=== PATIENT | female | born 2000 | race Caucasian/White ===

== ENCOUNTER 2021-04-17 11:57 | Inpatient (IN) ==
[2021-04-17] MEDS ORDERED: OXYTOCIN 30 UNITS/500 ML BAG IV PRN ×2 (17:27→17:57)
[2021-04-17] MEDS ORDERED: ceFAZolin 2000MG 2,000 MG/15 ML SYR IV STA (17:27)
[2021-04-17 17:47] LABS: Hematocrit (blood only) 38.4 % (37-47); Hemoglobin 12.9 g/dL (12.0-16.0); Mean Corpuscular Hemoglobin 28.5 pg (25-34); Mean Corpuscular Hgb Conc 33.6 g/dL (32-36); Mean Platelet Volume 12.5 fL (7.4-10.4); Platelet Count 314 K/uL (130-400); RDW Coefficient of Variation 13.5 % (11.5-14.5); RDW Standard Deviation 41.5 fL (36.4-46.3); Red Blood Count 4.52 M/uL (4.2-5.4); White Blood Count 12.88 K/uL (4.8-10.8)
--- NOTE | 2021-04-17 18:14 | History & Physical Report ---
Date of Service April 17, 2021 Assessment & Plan (1) Encounter for induction of labor: Plan: 20 yo G1 at 39 weeks w/ complicated by GDM on insulin, BMI >35 at the beginning of , GBS carrier and anxiety not on medication presenting for IOL - vitals and labs reassuring - NPO, sips and chips - starting Oxytocin for IOL - anesthesia consulted GDM on insulin - bsg 85 - check bsg with goal < 130 GBS carrier w/ allergy to penicillin - starting Ancef, continue Q8H until delivery (2) GBS carrier: (3) Insulin controlled gestational diabetes mellitus (GDM) during : (4) Psychogenic nonepileptic seizure: (5) Anxiety: Admission and Anticipated Discharge Date Admission Date: April 17, 2021 History of Present Illness Chief Complaint: IOL Primary Care Provider: LUCIEN Knox Fabiana Lopez is a G1 at 39 weeks here for an induction of labor. Her is complicated by GDM on insulin, BMI > 35 at the start of , and GBS carrier status. She has a history of anxiety, and psychogenic nonepileptic seizure. She was previously on Fluoxetine and Buspirone for anxiety and stopped these during . She said her last seizure activity was in May. She is a GBS carrier. She does have an allergy to Penicillin with the reaction of rash when she was younger. She denies any contractions, leaking fluid, vaginal bleeding. Pt. states the baby has good movement. She would like to have an epidural. Allergies Allergy/AdvReac Type Severity Reaction Status Date / Time Penicillins Allergy Severe Verified 04/16/21 15:18 Home Medications Medication Instructions Recorded Confirmed Type fluoxetine 40 mg capsule 40 mg PO DAILY 08/27/20 04/16/21 History prenat.vits,lizzie,rku-[id number] 1 tab PO DAILY 08/27/20 04/16/21 History buspirone 10 mg tablet 10 mg PO DAILY 09/28/20 04/16/21 History doxylamine succinate 25 mg tablet 25 mg PO HS PRN 09/28/20 04/16/21 History (Unisom (doxylamine)) ondansetron HCl 4 mg tablet 4 mg PO Q6H PRN #12 tab 09/28/20 04/16/21 Rx (Zofran) pyridoxine (vitamin B6) 100 mg 0 mg PO HS 09/28/20 04/16/21 History tablet (Vitamin B-6) blood-glucose meter (OneTouch #1 ea 11/28/20 04/16/21 Rx Verio Flex meter) lancets 33 gauge (OneTouch Delica #150 ea 11/28/20 04/16/21 Rx Plus Lancet) OneTouch Verio test strips (blood #150 ea NS 12/03/20 04/16/21 Rx sugar diagnostic) acetone (urine) test (Ketone Urine #50 ea 12/03/20 04/16/21 Rx Test) insulin NPH isoph U-100 human 100 10 unit SUBCUT QPM #15 ml 01/01/21 04/16/21 Rx unit/mL (3 mL) subcutaneous pen (Humulin N NPH U-100 Insulin KwikPen) pen needle, diabetic 32 gauge x #100 ea 01/01/21 04/16/21 Rx 5/32" (BD Ultra-Fine Brooke Pen Needle) ondansetron HCl 4 mg tablet 4 mg PO Q6H PRN #30 tab 02/23/21 04/16/21 Rx (Zofran) Patient History Medical History Anxiety Chemical Insulin controlled gestational diabetes mellitus (GDM) during Psychogenic nonepileptic seizure Surgical History No history of previous surgery Family History Mother H/O Spinal surgery Father Heart disease Social History Smoking Status: Never smoker Hx Alcohol Use: No Hx Substance Use: No Preferred Language: Slovak [employer] Server Required: No Beliefs That Will Affect Care: None marital status: Single marital status details: davian (20) [phone] Current Living Situation: Significant Other Current Living Situation Comment: lives with FOB, no pets. 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 Review of Systems no fever, no chills and no fatigue no cough, no dyspnea and no hemoptysis no chest pain and no palpitations no dysuria, no urinary frequency and no urinary urgency no rash Physical Exam Constitutional: well developed and well nourished; no acute distress Eyes: PERRL, conjunctivae normal, anicteric sclerae ENMT: external ear and nose normal, oropharynx normal Neck: normal visual inspection Respiratory: normal respiratory effort, lungs clear to auscultation Cardiovascular: RRR, no murmur, no edema Gastrointestinal (Abdomen): normal bowel sounds, soft, nontender, no hepatosplenomegaly Musculoskeletal: no cyanosis or clubbing, extremities motor strength 5/5 Skin: no rashes, warm and dry Neurologic: no focal motor deficits Psychiatric: Orientation: alert Eye Contact: good eye contact Genitourinary: Per. Dr. Alexander's exam: 375/-2 mid soft EGW 8-9 lbs Results & Data ([facility]) Vital Signs (Past 12 Hours) Vital Signs Pulse BP 04/17/21 17:40 118 H 134/71 Results Complete Blood Count Results: RBC 4.52 M/uL (4.2-5.4) 04/17/21 WBC 12.88 K/uL (4.8-10.8) H 04/17/21 Hgb 12.9 g/dL (12.0-16.0) 04/17/21 Hct 38.4 % (37-47) 04/17/21 Plt Count 314 K/uL (130-400) 04/17/21 Results BMP Results: Sodium 136 mmol/L (136-145) 09/28/20 Potassium 3.4 mmol/L (3.5-5.1) L 09/28/20 Chloride 103 mmol/L (98-107) 09/28/20 Carbon Dioxide 26 mmol/L (21-32) 09/28/20 Anion Gap 7.0 (3-11) 09/28/20 BUN 3 mg/dl (7-18) L 09/28/20 Creatinine 0.58 mg/dl (0.6-1.2) L 09/28/20 Glucose 85 mg/dl (70-99) 09/28/20 Code Status & VTE Plan Code Status full code Supervising Physician Co-Signing Physician Notes Patient seen and evaluated and agree with the above findings and plan. Resident Activity Tracking Resident Involvement: Resident Care Provided Care Provided: OB Delivery
[2021-04-17] MEDS: LACTATED RINGER'S 1,000 ML IV PRN (18:21)
[2021-04-17] MEDS ORDERED: CALCIUM CARBONATE 500 MG CHEWABLE TAB PO PRN (19:31)
[2021-04-18] MEDS ORDERED: BUPIVACAINE 0.25% 30 ML VIAL ONE ×2 (00:13→07:09)
[2021-04-18] MEDS ORDERED: fentaNYL citrate 100 MCG/2 ML VIAL ONE ×3 (00:13→11:01)
[2021-04-18] MEDS ORDERED: SODIUM CHLORIDE 0.9% INJ 10 ML VIAL ONE ×2 (00:13→08:45)
[2021-04-18] MEDS ORDERED: ePHEDrine sulfate 50 MG/ML AMP ONE ×2 (00:13→08:45)
[2021-04-18] MEDS ORDERED: fentaNYL 2MCG/ML ROPIVACAINE 1.25MG/ML 100 ML BAG EPI ONE (00:14)
[2021-04-18] MEDS ORDERED: ceFAZolin 1000MG 1,000 MG/7.5 ML SYR IV PRN (00:28)
[2021-04-18] MEDS: LACTATED RINGER'S 1,000 ML IV PRN ×3 (00:36→07:30)
[2021-04-18] MEDS ORDERED: diphenhydrAMINE 50 MG/ML VIAL IV PRN ×3 (00:44→21:56)
[2021-04-18] MEDS ORDERED: fentaNYL 2MCG/ML ROPIVACAINE 1.25MG/ML 100 ML BAG EPI PRN (00:44)
[2021-04-18] MEDS ORDERED: NALOXONE HCL 1 MG in SODIUM CHLORIDE 0.9% 1000ML 1,000 ML IV PRN ×2 (00:44→21:56)
[2021-04-18] MEDS ORDERED: ePHEDrine sulfate 50 MG/ML AMP IV PRN ×2 (00:44→21:56)
[2021-04-18] MEDS ORDERED: NALBUPHINE HCL INJ 10 MG/ML AMP IV PRN ×2 (00:44→21:56)
[2021-04-18] MEDS ORDERED: NALOXONE HCL 0.4 MG/1 ML VIAL/CARP IV PRN ×2 (00:44→21:56)
[2021-04-18] MEDS ORDERED: ONDANSETRON INJ 2 MG/ML 2 ML VIAL IV PRN ×3 (00:44→21:56)
--- NOTE | 2021-04-18 00:47 | Anesthesiology Consultation ---
Date of Service April 18, 2021 Assessment & Plan Chart Review Chart Review: Acceptable Risk for Surgery and Patient NOT seen in Pre Admission Testing Consults Requested none ASA ASA2 Proposed Anesthesia Anesthesia Type: MAC Spinal Risk / Benefits Reviewed With: PT / POA / Parent / Guardian, Accepts Plan and Informed Consent Obtained History Height/Weight Height: 5 ft 3 in Weight: 117.934 kg Allergies Allergy/AdvReac Type Severity Reaction Status Date / Time Penicillins Allergy Severe Rash Verified 04/17/21 19:15 Medications Home Medications Medication Instructions Recorded Confirmed Last Taken prenat.vits,lizzie,vnd-holw-udhrw 1 tab PO DAILY 08/27/20 04/17/21 04/16/21 20:30 blood-glucose meter (OneTouch #1 ea 11/28/20 04/16/21 Unknown Verio Flex meter) lancets 33 gauge (OneTouch Delica #150 ea 11/28/20 04/16/21 Unknown Plus Lancet) OneTouch Verio test strips (blood #150 ea NS 12/03/20 04/16/21 Unknown sugar diagnostic) acetone (urine) test (Ketone Urine #50 ea 12/03/20 04/16/21 Unknown Test) pen needle, diabetic 32 gauge x #100 ea 01/01/21 04/16/21 Unknown 5/32" (BD Ultra-Fine Brooke Pen Needle) ondansetron HCl 4 mg tablet 4 mg PO Q6H PRN #30 tab 02/23/21 04/17/21 04/16/21 1 6:30 (Zofran) insulin NPH isoph U-100 human 100 25 unit SUBCUT QPM 04/17/21 04/17/21 04/16/21 20:30 unit/mL (3 mL) subcutaneous pen (Humulin N NPH U-100 Insulin KwikPen) Active Medications Generic Name Dose Route Start Last Admin Trade Name Freq PRN Reason Stop Dose Admin Calcium Carbonate 1,500 mg 04/17/21 19:31 04/17/21 20:08 Calcium Carbonate 500 Mg Chewable Tab PO 05/17/21 19:30 1,500 mg BID PRN Administration Indigestion Lactated Ringer's 1,000 mls @ 125 mls/hr 04/17/21 17:27 04/18/21 00:36 Lr IV 04/19/21 17:26 999 mls/hr .Q8H PRN Administration L&D Protocol Protocol Oxytocin 30 units in 500 mls @ 10 mls/hr 04/17/21 17:57 04/17/21 22:15 Pitocin IV 04/19/21 17:56 0.6 units/hr .Q24H PRN 10 mls/hr Labor Induction/Augmentation Titration Protocol 0.6 UNITS/HR NPO Date Last Intake of Fluids: 04/18/21 Time Last Intake of Fluids: 00:10 Date Last Intake of Solids: 04/17/21 Time Last Intake of Solids: 13:00 Past Medical History Medical History Anxiety Chemical Insulin controlled gestational diabetes mellitus (GDM) during Psychogenic nonepileptic seizure Exercise / Class Metabolic Activity II 4-5 Yardwork/Stairs/Walk up hill Past Family History Family History Mother H/O Spinal surgery Father Heart disease Past Surgical History Surgical History No history of previous surgery Past Anesthesia History No Hx of Anesthesia Complications and No Family Hx of Anesthesia Complications History of PONV No Hx of PONV and No Hx of Motion Sickness Social History Smoking Status: Never smoker Hx Alcohol Use: No Hx Substance Use: No substance use type: does not use Review of Systems no chest pain or sob Physical Exam Vital Signs Last Vital Signs Temp 36.9 C 04/17/21 23:30 Pulse 85 04/18/21 00:40 Resp 20 04/18/21 00:29 BP 144/73 H 04/18/21 00:29 Pulse Ox 99 04/18/21 00:40 ENMT Mouth: no TMJ abnormality Thyromental Distance: > or= 3.5 Finger Breadths Mallampati Class: II Neck normal visual inspection Respiratory normal respiratory effort Auscultation: lungs clear to auscultation bilaterally Cardiovascular Rate/Rhythm: regular rate and regular rhythm Musculoskeletal Spine: normal cervical ROM Neurologic moves all extremities Psychiatric Orientation: alert and oriented x 3 Testing Laboratory Results 04/17/21 17:37 Blood Type O Positive 04/17/21 17:37 Antibody Screen NEGATIVE 04/17/21 17:37 04/17/21 04/17/21 04/17/21 23:31 21:26 19:12 POC Glucose 78 83 96
--- NOTE | 2021-04-18 05:23 | Labor Progress Brief Note ---
Date of Service April 18, 2021 Subjective Reason For Note: Routine Evaluation Assessment & Plan (1) Encounter for induction of labor: Plan: 20 yo G1 at 39 weeks w/ complicated by GDM on insulin, BMI >35 at the beginning of , GBS carrier and anxiety not on medication presenting for IOL - vitals and labs reassuring - NPO, sips and chips - Continue Oxytocin, AROM clear - anesthesia: Epidural GDM on insulin - bsg 78-100 - check bsg with goal < 130 GBS carrier w/ allergy to penicillin - starting Ancef, continue Q8H until delivery (2) GBS carrier: (3) Insulin controlled gestational diabetes mellitus (GDM) during : (4) Psychogenic nonepileptic seizure: (5) Anxiety: Admission and Anticipated Discharge Date Admission Date: April 17, 2021 Physical Exam Genitourinary: OB Exam Abdomen: + vertex Manual OB Exam: + cervical dilation 4 cm, + cervical effacement 80%, + station -2 and + amniotic fluid (AROM) clear OB Exam Monitor Tracing: + external FHT monitor used, + external uterine monitor used, + category I and + normal FHT variability; no early decelerations present, no late decelerations present and no variable decelerations Results & Data ([facility]) Vital Signs (Past 12 Hours) Vital Signs Temp Pulse Resp BP Pulse Ox 04/18/21 05:16 126 H 138/65 04/18/21 05:15 127 H 96 04/18/21 05:10 105 H 97 04/18/21 05:05 116 H 96 04/18/21 05:00 98 H 97 04/18/21 04:59 92 H 128/67 04/18/21 04:55 88 95 04/18/21 04:52 89 93 04/18/21 04:50 88 95 04/18/21 04:47 84 94 04/18/21 04:45 86 95 04/18/21 04:42 102 H 154/67 H 04/18/21 04:40 89 94 04/18/21 04:35 90 94 04/18/21 04:34 87 94 04/18/21 04:30 83 96 04/18/21 04:29 90 94 04/18/21 04:27 88 125/59 L 04/18/21 04:25 89 95 04/18/21 04:23 92 H 94 04/18/21 04:20 88 96 04/18/21 04:16 90 94 04/18/21 04:15 89 95 04/18/21 04:12 93 H 129/59 L 04/18/21 04:10 116 H 96 04/18/21 04:08 91 H 94 04/18/21 04:05 89 95 04/18/21 04:03 90 94 04/18/21 04:00 95 H 16 95 04/18/21 03:57 93 H 138/65 94 04/18/21 03:55 89 95 04/18/21 03:50 96 H 95 04/18/21 03:45 97 H 95 04/18/21 03:43 97 H 134/61 04/18/21 03:42 100 H 94 04/18/21 03:40 96 H 96 04/18/21 03:35 104 H 96 04/18/21 03:30 117 H 97 04/18/21 03:28 121 H 90 04/18/21 03:27 120 H 132/74 04/18/21 03:25 36.9 C 130 H 16 98 04/18/21 03:20 125 H 97 04/18/21 03:15 114 H 97 04/18/21 03:12 126 H 137/72 04/18/21 03:10 137 H 98 04/18/21 03:05 149 H 97 04/18/21 03:00 107 H 99 04/18/21 02:57 108 H 135/66 04/18/21 02:55 85 96 04/18/21 02:51 95 H 93 04/18/21 02:50 108 H 97 04/18/21 02:45 103 H 97 04/18/21 02:44 99 H 134/71 04/18/21 02:40 112 H 100 04/18/21 02:35 98 H 97 04/18/21 02:30 113 H 99 04/18/21 02:29 99 H 144/69 H 04/18/21 02:25 112 H 98 04/18/21 02:20 101 H 99 04/18/21 02:15 108 H 98 04/18/21 02:12 93 H 127/61 04/18/21 02:10 96 H 97 04/18/21 02:05 97 H 95 04/18/21 02:00 108 H 16 96 04/18/21 01:57 108 H 116/56 L 04/18/21 01:55 102 H 97 04/18/21 01:50 109 H 99 04/18/21 01:45 105 H 100 04/18/21 01:43 108 H 116/61 04/18/21 01:40 105 H 99 04/18/21 01:35 107 H 97 04/18/21 01:30 115 H 16 98 04/18/21 01:26 113 H 18 119/61 04/18/21 01:25 107 H 98 04/18/21 01:21 116 H 16 127/77 04/18/21 01:20 109 H 98 04/18/21 01:15 106 H 20 123/58 L 98 04/18/21 01:14 100 H 18 124/56 L 04/18/21 01:13 117 H 93 04/18/21 01:11 117 H 18 149/83 H 04/18/21 01:10 110 H 98 04/18/21 01:08 118 H 20 138/75 04/18/21 01:05 110 H 98 04/18/21 01:00 134 H 98 04/18/21 00:55 110 H 99 04/18/21 00:52 106 H 91 04/18/21 00:50 93 H 98 04/18/21 00:45 85 99 04/18/21 00:40 85 99 04/18/21 00:35 84 100 04/18/21 00:30 86 100 04/18/21 00:29 79 20 144/73 H 04/17/21 23:30 36.9 C 83 18 147/72 H 04/17/21 22:15 88 16 142/86 H 04/17/21 21:21 98 H 20 145/74 H 04/17/21 20:08 105 H 18 136/63 04/17/21 19:08 36.9 C 107 H 18 139/87 04/17/21 17:52 36.9 C 20 04/17/21 17:40 118 H 134/71 Coding Level of Care Code None Diagnoses Encounter for induction of labor Z34.90 GBS carrier Z22.330 Insulin controlled gestational diabetes mellitus (GDM) during O24.414 Psychogenic nonepileptic seizure F44.5 Anxiety F41.9
[2021-04-18] MEDS ORDERED: NURSING L&D Epidural Breakthrough Pain Update ONE (06:59)
--- NOTE | 2021-04-18 07:32 | Communication Note ---
Date of Service: April 18, 2021 Epidural was bolused with fentanyl 50mcg and 3mL of 0.25% bupivacaine. Labor pains had improved. VSS.
--- NOTE | 2021-04-18 08:46 | Obstetrical Progress Note ---
Date of Service April 18, 2021 Signed over of call patient's heart rate tracing is category 1 a scalp clip was placed due to difficulties in tracing possibly due to body habitus. Patient is on Pitocin and being induced she is gestational diabetic on insulin. I did examine her she has progressed to 7 cm and then to 9 cm however pelvic outlet is fairly narrow I did express this concern to the patient. She is also very uncomfortable at this stage she had a top dose of her epidural recently and this did not help much I contacted the anesthesiologist to see if there is anything else we can do to improve her pain. At this stage she is so uncomfortable I do not know if she can proceed this way. I have informed her I think there certainly is a higher chance of considering the narrowness of her pelvic outlet at the same time she is making progress of possibility of vaginal delivery as there. We can make her more comfortable as discussed with anesthesia we can give her the best possible chance of vaginal Assessment & Plan Admission and Anticipated Discharge Date Admission Date: April 17, 2021 Results & Data ([facility]) Vital Signs (Past 12 Hours) Vital Signs Temp Pulse Resp BP Pulse Ox 04/18/21 08:38 140 H 98 04/18/21 08:33 136 H 98 04/18/21 08:29 146 H 145/73 H 04/18/21 08:28 133 H 100 04/18/21 08:25 135 H 87 L 04/18/21 08:23 126 H 99 04/18/21 08:20 138 H 92 04/18/21 08:18 142 H 158/69 H 98 04/18/21 08:13 140 H 98 04/18/21 08:12 142 H 158/75 H 04/18/21 08:08 134 H 173/112 H 100 04/18/21 08:03 121 H 98 04/18/21 07:58 131 H 99 04/18/21 07:53 125 H 99 04/18/21 07:48 130 H 136/69 96 04/18/21 07:43 114 H 95 04/18/21 07:39 115 H 143/70 H 04/18/21 07:25 118 H 154/69 H 04/18/21 07:23 117 H 145/66 H 04/18/21 07:22 116 H 139/73 02/19/22 07:19 114 H 154/66 H 04/18/21 07:18 123 H 154/104 H 04/18/21 07:16 114 H 139/73 04/18/21 07:13 113 H 145/63 H 93 04/18/21 07:10 126 H 97 04/18/21 07:05 148 H 100 04/18/21 07:00 136 H 20 99 04/18/21 06:57 122 H 130/81 04/18/21 06:55 122 H 94 04/18/21 06:51 120 H 91 04/18/21 06:50 118 H 97 04/18/21 06:45 118 H 96 04/18/21 06:42 134 H 132/79 04/18/21 06:40 127 H 97 04/18/21 06:35 131 H 98 04/18/21 06:33 107 H 94 04/18/21 06:30 121 H 96 04/18/21 06:27 123 H 135/61 04/18/21 06:25 128 H 98 04/18/21 06:20 123 H 95 04/18/21 06:15 112 H 95 04/18/21 06:12 120 H 144/69 H 94 04/18/21 06:10 122 H 97 04/18/21 06:05 118 H 97 04/18/21 06:00 119 H 20 96 04/18/21 05:57 122 H 138/71 92 04/18/21 05:55 128 H 97 04/18/21 05:50 146 H 96 04/18/21 05:45 109 H 95 04/18/21 05:43 99 H 138/75 04/18/21 05:40 110 H 97 04/18/21 05:35 107 H 97 04/18/21 05:30 107 H 18 96 04/18/21 05:27 106 H 145/70 H 04/18/21 05:25 100 H 96 04/18/21 05:20 116 H 97 04/18/21 05:16 126 H 138/65 04/18/21 05:15 98.4 F 127 H 96 04/18/21 05:10 105 H 97 04/18/21 05:05 116 H 96 04/18/21 05:00 98 H 16 97 04/18/21 04:59 92 H 128/67 04/18/21 04:55 88 95 04/18/21 04:52 89 93 04/18/21 04:50 88 95 04/18/21 04:47 84 94 04/18/21 04:45 86 95 04/18/21 04:42 102 H 154/67 H 04/18/21 04:40 89 94 04/18/21 04:35 90 94 04/18/21 04:34 87 94 04/18/21 04:30 83 16 96 04/18/21 04:29 90 94 04/18/21 04:27 88 125/59 L 04/18/21 04:25 89 95 04/18/21 04:23 92 H 94 04/18/21 04:20 88 96 04/18/21 04:16 90 94 04/18/21 04:15 89 95 04/18/21 04:12 93 H 129/59 L 04/18/21 04:10 116 H 96 04/18/21 04:08 91 H 94 04/18/21 04:05 89 95 04/18/21 04:03 90 94 04/18/21 04:00 95 H 16 95 04/18/21 03:57 93 H 138/65 94 04/18/21 03:55 89 95 04/18/21 03:50 96 H 95 04/18/21 03:45 97 H 95 04/18/21 03:43 97 H 134/61 04/18/21 03:42 100 H 94 04/18/21 03:40 96 H 96 04/18/21 03:35 104 H 96 04/18/21 03:30 117 H 97 04/18/21 03:28 121 H 90 04/18/21 03:27 120 H 132/74 04/18/21 03:25 98.4 F 130 H 16 98 04/18/21 03:20 125 H 97 04/18/21 03:15 114 H 97 04/18/21 03:12 126 H 137/72 04/18/21 03:10 137 H 98 04/18/21 03:05 149 H 97 04/18/21 03:00 107 H 99 04/18/21 02:57 108 H 135/66 04/18/21 02:55 85 96 04/18/21 02:51 95 H 93 04/18/21 02:50 108 H 97 04/18/21 02:45 103 H 97 04/18/21 02:44 99 H 134/71 04/18/21 02:40 112 H 100 04/18/21 02:35 98 H 97 04/18/21 02:30 113 H 99 04/18/21 02:29 99 H 144/69 H 04/18/21 02:25 112 H 98 04/18/21 02:20 101 H 99 04/18/21 02:15 108 H 98 04/18/21 02:12 93 H 127/61 04/18/21 02:10 96 H 97 04/18/21 02:05 97 H 95 04/18/21 02:00 108 H 16 96 04/18/21 01:57 108 H 116/56 L 04/18/21 01:55 102 H 97 04/18/21 01:50 109 H 99 04/18/21 01:45 105 H 100 04/18/21 01:43 108 H 116/61 04/18/21 01:40 105 H 99 04/18/21 01:35 107 H 97 04/18/21 01:30 115 H 16 98 04/18/21 01:26 113 H 18 119/61 04/18/21 01:25 107 H 98 04/18/21 01:21 116 H 16 127/77 04/18/21 01:20 109 H 98 04/18/21 01:15 106 H 20 123/58 L 98 04/18/21 01:14 100 H 18 124/56 L 04/18/21 01:13 117 H 93 04/18/21 01:11 117 H 18 149/83 H 04/18/21 01:10 110 H 98 04/18/21 01:08 118 H 20 138/75 04/18/21 01:05 110 H 98 04/18/21 01:00 134 H 98 04/18/21 00:55 110 H 99 04/18/21 00:52 106 H 91 04/18/21 00:50 93 H 98 04/18/21 00:45 85 99 04/18/21 00:40 85 99 04/18/21 00:35 84 100 04/18/21 00:30 86 100 04/18/21 00:29 79 20 144/73 H 04/17/21 23:30 98.4 F 83 18 147/72 H 04/17/21 22:15 88 16 142/86 H 04/17/21 21:21 98 H 20 145/74 H PG Care Time/CCT Total # of Minutes Spent Total Time Spent with Patient: Total time spent is greater than 50% in coordination of care (as documented) at patient's floor/unit and/or counseling patient: Coding Level of Care Code None
--- NOTE | 2021-04-18 09:57 | Labor Progress Brief Note ---
Date of Service April 18, 2021 Patient has tried to push however she cannot bring it down to the station below -1. There is an anterior lip although I am not convinced this is purely cervix it may just be soft tissue and a very narrow pubic arch that are longer deeper decelerations with pushing as well at this time category 2 tracing. Patient still is uncomfortable I had the patient pushing over the last hour she really has not made any progress I have offered her to continue pushing however I am not optimistic that she will make it at this time the patient wishes to proceed with section I think this is reasonable as I do not think this baby is going to fit through we did again discussed the option of continuing labor. Discussed the higher rate of infection especially with long labor and section. The patient was counseled to the nature of the procedure including alternatives such as labor. Risks were discussed including bleeding infection injury to bowel bladder ureter vessels and even baby. Deep Vein thrombosis, pulmonary embolus discussed. Breakdown of incision reviewed. Deep vein thrombosis pulmonary embolus hernia and failure of the incision to heal were discussed Patient verbalized understanding of this and was given ample time to ask questions Assessment & Plan Admission and Anticipated Discharge Date Admission Date: April 17, 2021 Results & Data ([facility]) Vital Signs (Past 12 Hours) Vital Signs Temp Pulse Resp BP Pulse Ox 04/18/21 09:53 134 H 67 L 04/18/21 09:52 139 H 80 L 04/18/21 09:48 132 H 97 04/18/21 09:45 126 H 150/69 H 91 04/18/21 09:43 131 H 98 04/18/21 09:42 82 167/108 H 04/18/21 09:39 139 H 90 04/18/21 09:38 149 H 92 04/18/21 09:37 98.2 F 22 04/18/21 09:34 147 H 85 L 04/18/21 09:33 149 H 98 04/18/21 09:28 150 H 97 04/18/21 09:23 158 H 97 04/18/21 09:22 150 H 93 04/18/21 09:18 155 H 98 04/18/21 09:17 147 H 93 04/18/21 09:13 148 H 100 04/18/21 09:11 142 H 166/96 H 04/18/21 09:08 140 H 96 04/18/21 09:03 149 H 98 04/18/21 09:01 134 H 173/82 H 04/18/21 08:59 130 H 192/112 H 04/18/21 08:58 140 H 99 04/18/21 08:54 133 H 163/70 H 04/18/21 08:53 145 H 152/80 H 99 04/18/21 08:52 130 H 91 04/18/21 08:49 136 H 137/98 04/18/21 08:48 139 H 98 04/18/21 08:43 142 H 99 04/18/21 08:38 140 H 98 04/18/21 08:33 136 H 98 04/18/21 08:29 146 H 145/73 H 04/18/21 08:28 133 H 100 04/18/21 08:25 135 H 87 L 04/18/21 08:23 126 H 99 04/18/21 08:20 138 H 92 04/18/21 08:18 142 H 158/69 H 98 04/18/21 08:13 140 H 98 04/18/21 08:12 142 H 158/75 H 04/18/21 08:08 134 H 173/112 H 100 04/18/21 08:03 121 H 98 04/18/21 07:58 131 H 99 04/18/21 07:53 125 H 99 04/18/21 07:48 130 H 136/69 96 04/18/21 07:43 114 H 95 04/18/21 07:39 115 H 143/70 H 04/18/21 07:25 118 H 154/69 H 04/18/21 07:23 117 H 145/66 H 04/18/21 07:22 116 H 139/73 04/18/21 07:19 114 H 154/66 H 04/18/21 07:18 123 H 154/104 H 04/18/21 07:16 114 H 139/73 04/18/21 07:13 113 H 145/63 H 93 04/18/21 07:10 126 H 97 04/18/21 07:05 148 H 100 04/18/21 07:00 136 H 20 99 04/18/21 06:57 122 H 130/81 04/18/21 06:55 122 H 94 04/18/21 06:51 120 H 91 04/18/21 06:50 118 H 97 04/18/21 06:45 118 H 96 04/18/21 06:42 134 H 132/79 04/18/21 06:40 127 H 97 04/18/21 06:35 131 H 98 04/18/21 06:33 107 H 94 04/18/21 06:30 121 H 96 04/18/21 06:27 123 H 135/61 04/18/21 06:25 128 H 98 04/18/21 06:20 123 H 95 04/18/21 06:15 112 H 95 04/18/21 06:12 120 H 144/69 H 94 04/18/21 06:10 122 H 97 04/18/21 06:05 118 H 97 04/18/21 06:00 119 H 20 96 04/18/21 05:57 122 H 138/71 92 04/18/21 05:55 128 H 97 04/18/21 05:50 146 H 96 04/18/21 05:45 109 H 95 04/18/21 05:43 99 H 138/75 04/18/21 05:40 110 H 97 04/18/21 05:35 107 H 97 04/18/21 05:30 107 H 18 96 04/18/21 05:27 106 H 145/70 H 04/18/21 05:25 100 H 96 04/18/21 05:20 116 H 97 04/18/21 05:16 126 H 138/65 04/18/21 05:15 98.4 F 127 H 96 04/18/21 05:10 105 H 97 04/18/21 05:05 116 H 96 04/18/21 05:00 98 H 16 97 04/18/21 04:59 92 H 128/67 04/18/21 04:55 88 95 04/18/21 04:52 89 93 04/18/21 04:50 88 95 04/18/21 04:47 84 94 04/18/21 04:45 86 95 04/18/21 04:42 102 H 154/67 H 04/18/21 04:40 89 94 04/18/21 04:35 90 94 04/18/21 04:34 87 94 04/18/21 04:30 83 16 96 04/18/21 04:29 90 94 04/18/21 04:27 88 125/59 L 04/18/21 04:25 89 95 04/18/21 04:23 92 H 94 04/18/21 04:20 88 96 04/18/21 04:16 90 94 04/18/21 04:15 89 95 04/18/21 04:12 93 H 129/59 L 04/18/21 04:10 116 H 96 04/18/21 04:08 91 H 94 04/18/21 04:05 89 95 04/18/21 04:03 90 94 04/18/21 04:00 95 H 16 95 04/18/21 03:57 93 H 138/65 94 04/18/21 03:55 89 95 04/18/21 03:50 96 H 95 04/18/21 03:45 97 H 95 04/18/21 03:43 97 H 134/61 04/18/21 03:42 100 H 94 04/18/21 03:40 96 H 96 04/18/21 03:35 104 H 96 04/18/21 03:30 117 H 97 04/18/21 03:28 121 H 90 04/18/21 03:27 120 H 132/74 04/18/21 03:25 98.4 F 130 H 16 98 04/18/21 03:20 125 H 97 04/18/21 03:15 114 H 97 04/18/21 03:12 126 H 137/72 04/18/21 03:10 137 H 98 04/18/21 03:05 149 H 97 04/18/21 03:00 107 H 99 04/18/21 02:57 108 H 135/66 04/18/21 02:55 85 96 04/18/21 02:51 95 H 93 04/18/21 02:50 108 H 97 04/18/21 02:45 103 H 97 04/18/21 02:44 99 H 134/71 04/18/21 02:40 112 H 100 04/18/21 02:35 98 H 97 04/18/21 02:30 113 H 99 04/18/21 02:29 99 H 144/69 H 04/18/21 02:25 112 H 98 04/18/21 02:20 101 H 99 04/18/21 02:15 108 H 98 04/18/21 02:12 93 H 127/61 04/18/21 02:10 96 H 97 04/18/21 02:05 97 H 95 04/18/21 02:00 108 H 16 96 04/18/21 01:57 108 H 116/56 L 04/18/21 01:55 102 H 97 04/18/21 01:50 109 H 99 04/18/21 01:45 105 H 100 04/18/21 01:43 108 H 116/61 04/18/21 01:40 105 H 99 04/18/21 01:35 107 H 97 04/18/21 01:30 115 H 16 98 04/18/21 01:26 113 H 18 119/61 04/18/21 01:25 107 H 98 04/18/21 01:21 116 H 16 127/77 04/18/21 01:20 109 H 98 04/18/21 01:15 106 H 20 123/58 L 98 04/18/21 01:14 100 H 18 124/56 L 04/18/21 01:13 117 H 93 04/18/21 01:11 117 H 18 149/83 H 04/18/21 01:10 110 H 98 04/18/21 01:08 118 H 20 138/75 04/18/21 01:05 110 H 98 04/18/21 01:00 134 H 98 04/18/21 00:55 110 H 99 04/18/21 00:52 106 H 91 04/18/21 00:50 93 H 98 04/18/21 00:45 85 99 04/18/21 00:40 85 99 04/18/21 00:35 84 100 04/18/21 00:30 86 100 04/18/21 00:29 79 20 144/73 H 04/17/21 23:30 98.4 F 83 18 147/72 H 04/17/21 22:15 88 16 142/86 H Coding Level of Care Code None
[2021-04-18] MEDS ORDERED: CITRIC ACID/SODIUM CITRATE 15 ML UDC PO SCH (10:00)
[2021-04-18] MEDS ORDERED: LACTATED RINGER'S 1,000 ML IV SCH ×2 (10:00→11:45)
[2021-04-18] MEDS ORDERED: OXYTOCIN 10 UNITS/ML 10ML VIAL ONE (10:03)
[2021-04-18] MEDS ORDERED: LIDOCAINE 2%/EPINEPHRINE 1:200,000 20 ML SDV ONE (10:04)
--- NOTE | 2021-04-18 10:19 | Anesthesiology Consultation ---
Date of Service April 18, 2021 Assessment & Plan (1) Encounter for pre-operative examination: Chart Review Chart Review: Acceptable Risk for Surgery Consults Requested none ASA [id number] Proposed Anesthesia Anesthesia Type: Other (Patient with epidural, if there is inadequate coverage, plan is for GA. Patient is aware.) Risk / Benefits Reviewed With: PT / POA / Parent / Guardian, Accepts Plan and Informed Consent Obtained History Surgery Operation Date: 04/18/21 10:00 Proposed Procedures p Section in LD(Bilateral) - Lillie Bettencourt MD, FACOG Height/Weight Height: 5 ft 3 in Weight: 117.934 kg Allergies Allergy/AdvReac Type Severity Reaction Status Date / Time Penicillins Allergy Severe Rash Verified 04/17/21 19:15 Medications Home Medications Medication Instructions Recorded Confirmed Last Taken prenat.vits,lizzie,[id number] 1 tab PO DAILY 08/27/20 04/17/21 04/16/21 20:30 blood-glucose meter (OneTouch #1 ea 11/28/20 04/16/21 Unknown Verio Flex meter) lancets 33 gauge (OneTouch Delica #150 ea 11/28/20 04/16/21 Unknown Plus Lancet) OneTouch Verio test strips (blood #150 ea NS 12/03/20 04/16/21 Unknown sugar diagnostic) acetone (urine) test (Ketone Urine #50 ea 12/03/20 04/16/21 Unknown Test) pen needle, diabetic 32 gauge x #100 ea 01/01/21 04/16/21 Unknown 5/32" (BD Ultra-Fine Brooke Pen Needle) ondansetron HCl 4 mg tablet 4 mg PO Q6H PRN #30 tab 02/23/21 04/17/21 04/16/21 16:30 (Zofran) insulin NPH isoph U-100 human 100 25 unit SUBCUT QPM 04/17/21 04/17/21 04/16/21 20:30 unit/mL (3 mL) subcutaneous pen (Humulin N NPH U-100 Insulin KwikPen) Active Medications Generic Name Dose Route Start Last Admin Trade Name Freq PRN Reason Stop Dose Admin Calcium Carbonate 1,500 mg 04/17/21 19:31 04/17/21 20:08 Calcium Carbonate 500 Mg Chewable Tab PO 05/17/21 19:30 1,500 mg BID PRN Administration Indigestion Cefazolin Sodium 1,000 mg in 7.5 mls @ 2.5 mls/min 04/18/21 00:28 04/18/21 02:20 Ancef 1000mg IV 04/28/21 00:27 2.5 mls/min Q8H PRN Administration GBS(+) Until Delivery Lactated Ringer's 1,000 mls @ 125 mls/hr 04/17/21 17:27 04/18/21 07:30 Lr IV 04/19/21 17:26 999 mls/hr .Q8H PRN Administration L&D Protocol Protocol Oxytocin 30 units in 500 mls @ 16 mls/hr 04/17/21 17:57 04/18/21 07:02 Pitocin IV 04/19/21 17:56 0.96 units/hr .Q24H PRN 16 mls/hr Labor Induction/Augmentation Titration Protocol 0.96 UNITS/HR Lactated Ringer's 1,000 mls @ 999 mls/hr 04/18/21 10:00 04/18/21 10:17 Lr IV 04/18/21 11:00 999 mls/hr .Q1H1M BRITTANY Administration Ondansetron HCl 4 mg 04/18/21 00:44 04/18/21 06:02 Ondansetron Inj 2 Mg/Ml 2 Ml Vial IV 04/19/21 00:43 4 mg Q6H PRN Administration Nausea And Vomiting Ropivacaine 100 ml 04/18/21 00:44 04/18/21 07:48 Fentanyl 2mcg/Ml Ropivacaine 1.25mg/Ml 100 Ml Bag EPI 04/19/21 00:43 100 ml PRN PRN Administration Pain R/T Labor Protocol NPO Date Last Intake of Fluids: 04/18/21 Time Last Intake of Fluids: 08:00 Date Last Intake of Solids: 04/17/21 Time Last Intake of Solids: 16:00 Past Medical History Medical History Anxiety Chemical Insulin controlled gestational diabetes mellitus (GDM) during Psychogenic nonepileptic seizure Exercise / Class Metabolic Activity II 4-5 Yardwork/Stairs/Walk up hill Past Family History Family History Mother H/O Spinal surgery Father Heart disease Past Surgical History Surgical History No history of previous surgery Past Anesthesia History No Hx of Anesthesia Complications and No Family Hx of Anesthesia Complications History of PONV No Hx of PONV and No Hx of Motion Sickness Social History Smoking Status: Never smoker Hx Alcohol Use: No Hx Substance Use: No substance use type: does not use Physical Exam Vital Signs Last Vital Signs Temp 98.2 F 04/18/21 09:37 Pulse 142 H 04/18/21 10:14 Resp 22 04/18/21 09:37 BP 133/74 04/18/21 10:14 Pulse Ox 97 04/18/21 10:13 ENMT Mouth: no dentition abnormality Thyromental Distance: > or= 3.5 Finger Breadths Mallampati Class: III Neck normal visual inspection Respiratory normal respiratory effort Auscultation: lungs clear to auscultation bilaterally Cardiovascular Rate/Rhythm: regular rate and regular rhythm Testing Laboratory Results 04/17/21 17:37 Blood Type O Positive 04/17/21 17:37 Antibody Screen NEGATIVE 04/17/21 17:37 04/18/21 04/18/21 04/18/21 07:40 05:09 03:24 POC Glucose 83 88 94 04/18/21 04/17/21 01:20 23:31 POC Glucose 100 H 78
[2021-04-18] MEDS ORDERED: ONDANSETRON INJ 2 MG/ML 2 ML VIAL ONE (10:35)
[2021-04-18] MEDS ORDERED: MoRPHine SULFATE PF 1 MG/ML 10 ML AMP/VIAL ONE (10:49)
--- NOTE | 2021-04-18 11:27 | Operative Report ---
PG Post Operative Report Pre & Post Diagnosis Operation Date: 04/18/21 10:00 Pre-Op Diagnosis: 1. Failure to Progress 2. Non-reassuring Heart Rate Tracing. 3. Maternal Intolerance to Labor Post-Op Diagnosis: Same I identified the patient and participated in the time-out.: Yes Procedure Operation Date: 04/18/21 10:00 Actual Procedures p Section in LD; Primary lower uterine transverse section for the of a live girl infant at 1051 - Lillie Bettencourt MD, FACOG Surgeon Lillie Bettencourt MD, FACOG Health And Wellness Coordinator Dr. Alexander Estimated Blood Loss 500 Findings Consistent with Post-Op Diagnosis Specimens Cord blood cord gases Description of Procedure Regional anesthetic had been given by anesthesia patient was prepped and draped with a leftward tilt preoperative antibiotics had been given in appropriate timing by anesthesiology. Once the prep was allowed to fully dry timeout was performed. Pickups with teeth were used to test the incision area was found to be adequate for incision as the patient did not feel sharp pain. Scalpel was used to make a Pfannenstiel incision on the lower abdomen. We then cut through the subcutaneous fat down to the level of the anterior rectus sheath fascia this was cut in the midline and then extended laterally with the curved Romeo scissors. At this stage we then placed 2 Karthikeyan clamps on the anterior aspect of the fascia. Using the curved Romeo's we are able to dissect the fascia superiorly away from the rectus muscles. Care was taken to maintain hemostasis. Karthikeyan clamps were then placed to the inferior aspect of the anterior sheath of the fascia. Fascia was then dissected away from the rectus muscles inferiorly towards the pubic bone. A Karthikeyan was then placed in the midline both inferiorly and superiorly. This was to allow exposure by retraction rectus muscles were in the midline with were then able to cut through the peritoneum and then enter the peritoneal cavity. Opening was enlarged to allow exposure of the peritoneal cavity both superiorly and inferiorly. Once adequate space was obtained a bladder retractor was placed to expose the lower segment Metzenbaums were used to dissect the bladder flap inferiorly away from the uterus. This was done sharply bladder retractor was then repositioned to expose the lower segment of the uterus Fresh scalpel was used to make a low transverse incision on the uterus. Uterus was then entered bluntly with the operators finger, membranes ruptured and the opening was enlarged using the operators fingers bluntly pulling superiorly and inferiorly to allow exposure. Baby was delivered by first flexion of the head elevation of the head out of the pelvis and then pressure by the multimedia production assistant on the maternal abdomen. Baby's head was then delivered mouth and then nares were suctioned and then using gentle traction the baby was fully delivered. Live vigorous . Fluid was clear cord clamped and cut cord gases obtained cord blood obtained baby handed to pediatrics. Placenta removed was removed with traction we ensure the entire placenta was removed with a moist lap sponge into the uterus Uterus was then exteriorized. IV Pitocin had been started by anesthesia tone improved there were no extensions the uterus was then closed using 0 Monocryl in a 2 layer closure the first layer closed in a running locked fashion from left to right and then a second closure from left to right in a running nonlocked fashion. At this stage hemostasis was excellent. Uterus was placed back in the peritoneal cavity with suction irrigation out and inspection of the uterus at this stage revealed excellent hemostasis Retractors were removed urine color was similar at this stage to the start of the procedure as it was bloody as the patient has been fully dilated and pushing this stage of the case we inspected the rectus muscles they were hemostatic fascia was closed with 0 Vicryl subcutaneous fat was irrigated and closed with 3-0 Vicryl skin closed with 4-0 subcuticular Monocryl tessa dressing applied I attest to the content of the Intraoperative Record and any orders documented therein. Any exceptions are noted below. OB Procedure Charges 84749
[2021-04-18] MEDS ORDERED: diphenhydrAMINE Capsule 25 MG CAP PO PRN (11:45)
[2021-04-18] MEDS ORDERED: DIPHTHERIA/TETANUS/PERTUSSIS 0.5 ML SYR/VIAL IM ONE (11:45)
[2021-04-18] MEDS ORDERED: BENZOCAINE 20% AER SPR 82.5 GM CAN EXT PRN (11:45)
[2021-04-18] MEDS ORDERED: HYDROCORTISONE ACETATE 25 MG SUPP PR PRN (11:45)
[2021-04-18] MEDS ORDERED: SENNA 8.6 MG TAB PO PRN (11:45)
[2021-04-18] MEDS ORDERED: PROMETHAZINE HCL 25 MG in SODIUM CHLORIDE 0.9% 50 ML IV PRN (11:45)
[2021-04-18] MEDS ORDERED: MAGNESIUM HYDROXIDE SUSP 30 ML UDC PO PRN (11:45)
[2021-04-18 11:47] LABS: Base Excess Cord Arterial Bld 0.4 mEq/L (-9-1.8); CO2 Cord Arterial Blood 48 mmHg (39.1-73.5); HCO3 Cord Arterial Blood 27 mmol/L (19.7-28.5); Oxygen Sat Cord Arterial Blood < 60.0 % (<60); PO2 Cord Arterial Blood 23 mmHg (4.1-31.7); pH Cord Arterial Blood 7.36 (7.1-7.38)
[2021-04-18] MEDS: KETOROLAC 30 MG/ML VIAL IV PRN ×3 (12:06→23:48)
--- NOTE | 2021-04-18 12:50 | Anesthesiology Progress Note ---
Date of Service April 18, 2021 Anesthesia Post Procedure Vital Signs Vital Signs: Temp Pulse Resp BP Pulse Ox 04/18/21 12:48 109 H 98 04/18/21 12:45 107 H 154/68 H 04/18/21 12:43 105 H 97 04/18/21 12:40 107 H 20 152/70 H 99 04/18/21 12:38 108 H 99 04/18/21 12:35 114 H 152/70 H 04/18/21 12:33 113 H 99 04/18/21 12:28 118 H 99 04/18/21 12:27 108 H 153/67 H 04/18/21 12:25 111 H 186/72 H 04/18/21 12:23 114 H 99 04/18/21 12:18 114 H 100 04/18/21 12:15 99 H 184/84 H 04/18/21 12:13 98 H 98 04/18/21 12:10 106 H 18 184/84 H 99 04/18/21 12:08 110 H 100 04/18/21 12:05 114 H 89 L 04/18/21 12:03 108 H 100 04/18/21 12:00 113 H 20 97 04/18/21 11:59 115 H 92 04/18/21 11:58 113 H 96 04/18/21 11:53 110 H 98 04/18/21 11:50 110 H 22 144/65 H 97 04/18/21 11:49 110 H 93 04/18/21 11:48 111 H 100 04/18/21 11:45 110 H 144/65 H 04/18/21 11:43 115 H 97 04/18/21 11:40 97.9 F 120 H 20 143/68 H 97 04/18/21 11:38 120 H 143/68 H 97 04/18/21 10:25 144 H 92 04/18/21 10:23 153 H 100 04/18/21 10:18 137 H 98 04/18/21 10:14 142 H 133/74 04/18/21 10:13 136 H 97 04/18/21 10:09 139 H 92 04/18/21 10:08 134 H 98 04/18/21 10:03 138 H 99 04/18/21 09:59 134 H 92 04/18/21 09:58 140 H 99 04/18/21 09:53 134 H 67 L 04/18/21 09:52 139 H 80 L 04/18/21 09:48 132 H 97 04/18/21 09:45 126 H 150/69 H 91 04/18/21 09:43 131 H 98 04/18/21 09:42 82 167/108 H 04/18/21 09:39 139 H 90 04/18/21 09:38 149 H 92 04/18/21 09:37 98.2 F 22 04/18/21 09:34 147 H 85 L 04/18/21 09:33 149 H 98 04/18/21 09:28 150 H 97 04/18/21 09:23 158 H 97 04/18/21 09:22 150 H 93 04/18/21 09:18 155 H 98 04/18/21 09:17 147 H 93 04/18/21 09:13 148 H 100 04/18/21 09:11 142 H 166/96 H 04/18/21 09:08 140 H 96 04/18/21 09:03 149 H 98 04/18/21 09:01 134 H 173/82 H 04/18/21 08:59 130 H 192/112 H 04/18/21 08:58 140 H 99 04/18/21 08:54 133 H 163/70 H 04/18/21 08:53 145 H 152/80 H 99 04/18/21 08:52 130 H 91 04/18/21 08:49 136 H 137/98 04/18/21 08:48 139 H 98 04/18/21 08:43 142 H 99 04/18/21 08:38 140 H 98 04/18/21 08:33 136 H 98 04/18/21 08:29 146 H 145/73 H 04/18/21 08:28 133 H 100 04/18/21 08:25 135 H 87 L 04/18/21 08:23 126 H 99 04/18/21 08:20 138 H 92 04/18/21 08:18 142 H 158/69 H 98 04/18/21 08:13 140 H 98 04/18/21 08:12 142 H 158/75 H 04/18/21 08:08 134 H 173/112 H 100 04/18/21 08:03 121 H 98 04/18/21 07:58 131 H 99 04/18/21 07:53 125 H 99 04/18/21 07:48 130 H 136/69 96 04/18/21 07:43 114 H 95 04/18/21 07:39 115 H 143/70 H 04/18/21 07:25 118 H 154/69 H 04/18/21 07:23 117 H 145/66 H 04/18/21 07:22 116 H 139/73 04/18/21 07:19 114 H 154/66 H 04/18/21 07:18 123 H 154/104 H 04/18/21 07:16 114 H 139/73 04/18/21 07:13 113 H 145/63 H 93 04/18/21 07:10 126 H 97 04/18/21 07:05 148 H 100 04/18/21 07:00 136 H 20 99 04/18/21 06:57 122 H 130/81 04/18/21 06:55 122 H 94 04/18/21 06:51 120 H 91 04/18/21 06:50 118 H 97 04/18/21 06:45 118 H 96 04/18/21 06:42 134 H 132/79 04/18/21 06:40 127 H 97 04/18/21 06:35 131 H 98 04/18/21 06:33 107 H 94 04/18/21 06:30 121 H 96 04/18/21 06:27 123 H 135/61 04/18/21 06:25 128 H 98 04/18/21 06:20 123 H 95 04/18/21 06:15 112 H 95 04/18/21 06:12 120 H 144/69 H 94 04/18/21 06:10 122 H 97 04/18/21 06:05 118 H 97 04/18/21 06:00 119 H 20 96 04/18/21 05:57 122 H 138/71 92 04/18/21 05:55 128 H 97 04/18/21 05:50 146 H 96 04/18/21 05:45 109 H 95 04/18/21 05:43 99 H 138/75 04/18/21 05:40 110 H 97 04/18/21 05:35 107 H 97 04/18/21 05:30 107 H 18 96 04/18/21 05:27 106 H 145/70 H 04/18/21 05:25 100 H 96 04/18/21 05:20 116 H 97 04/18/21 05:16 126 H 138/65 04/18/21 05:15 98.4 F 127 H 96 04/18/21 05:10 105 H 97 04/18/21 05:05 116 H 96 04/18/21 05:00 98 H 16 97 04/18/21 04:59 92 H 128/67 04/18/21 04:55 88 95 04/18/21 04:52 89 93 04/18/21 04:50 88 95 04/18/21 04:47 84 94 04/18/21 04:45 86 95 04/18/21 04:42 102 H 154/67 H 04/18/21 04:40 89 94 04/18/21 04:35 90 94 04/18/21 04:34 87 94 04/18/21 04:30 83 16 96 04/18/21 04:29 90 94 04/18/21 04:27 88 125/59 L 04/18/21 04:25 89 95 04/18/21 04:23 92 H 94 04/18/21 04:20 88 96 04/18/21 04:16 90 94 04/18/21 04:15 89 95 04/18/21 04:12 93 H 129/59 L 04/18/21 04:10 116 H 96 04/18/21 04:08 91 H 94 04/18/21 04:05 89 95 04/18/21 04:03 90 94 04/18/21 04:00 95 H 16 95 04/18/21 03:57 93 H 138/65 94 04/18/21 03:55 89 95 04/18/21 03:50 96 H 95 04/18/21 03:45 97 H 95 04/18/21 03:43 97 H 134/61 04/18/21 03:42 100 H 94 04/18/21 03:40 96 H 96 04/18/21 03:35 104 H 96 04/18/21 03:30 117 H 97 04/18/21 03:28 121 H 90 04/18/21 03:27 120 H 132/74 04/18/21 03:25 98.4 F 130 H 16 98 04/18/21 03:20 125 H 97 04/18/21 03:15 114 H 97 04/18/21 03:12 126 H 137/72 04/18/21 03:10 137 H 98 04/18/21 03:05 149 H 97 04/18/21 03:00 107 H 99 04/18/21 02:57 108 H 135/66 04/18/21 02:55 85 96 04/18/21 02:51 95 H 93 04/18/21 02:50 108 H 97 04/18/21 02:45 103 H 97 04/18/21 02:44 99 H 134/71 04/18/21 02:40 112 H 100 04/18/21 02:35 98 H 97 04/18/21 02:30 113 H 99 04/18/21 02:29 99 H 144/69 H 04/18/21 02:25 112 H 98 04/18/21 02:20 101 H 99 04/18/21 02:15 108 H 98 04/18/21 02:12 93 H 127/61 04/18/21 02:10 96 H 97 04/18/21 02:05 97 H 95 04/18/21 02:00 108 H 16 96 04/18/21 01:57 108 H 116/56 L 04/18/21 01:55 102 H 97 04/18/21 01:50 109 H 99 04/18/21 01:45 105 H 100 04/18/21 01:43 108 H 116/61 04/18/21 01:40 105 H 99 04/18/21 01:35 107 H 97 04/18/21 01:30 115 H 16 98 04/18/21 01:26 113 H 18 119/61 04/18/21 01:25 107 H 98 04/18/21 01:21 116 H 16 127/77 04/18/21 01:20 109 H 98 04/18/21 01:15 106 H 20 123/58 L 98 04/18/21 01:14 100 H 18 124/56 L 04/18/21 01:13 117 H 93 04/18/21 01:11 117 H 18 149/83 H 04/18/21 01:10 110 H 98 04/18/21 01:08 118 H 20 138/75 04/18/21 01:05 110 H 98 04/18/21 01:00 134 H 98 04/18/21 00:55 110 H 99 04/18/21 00:52 106 H 91 04/18/21 00:50 93 H 98 04/18/21 00:45 85 99 04/18/21 00:40 85 99 04/18/21 00:35 84 100 04/18/21 00:30 86 100 04/18/21 00:29 79 20 144/73 H 04/17/21 23:30 98.4 F 83 18 147/72 H 04/17/21 22:15 88 16 142/86 H 04/17/21 21:21 98 H 20 145/74 H 04/17/21 20:08 105 H 18 136/63 04/17/21 19:08 98.4 F 107 H 18 139/87 04/17/21 17:52 98.4 F 20 04/17/21 17:40 118 H 134/71 Pain Intensity Abdomen: Pain Intensity: 3 Transfer of Care Handoff Completed per policy Notes Mental Status: alert / awake / arousable and participated in evaluation Nausea / Vomiting: adequately controlled Pain: adequately controlled Airway Patency, RR, SpO2: stable & adequate BP & HR: stable & adequate Hydration State: stable & adequate Neuraxial Anesthesia: was administered and sensory block is resolving Anesthetic Complications: no major complications apparent and Pt Satisfied with anesthetic care
[2021-04-18] MEDS: OXYTOCIN 20 UNITS in LACTATED RINGER'S 1,000 ML IV SCH ×2 (12:57→20:46)
--- NOTE | 2021-04-18 14:43 | Communication Note ---
Date of Service: April 18, 2021 advised of elevated BP post op. Pressures much better when pain controlled and both before delivery and after there have been pain control issues. Will follow closely
[2021-04-18] MEDS: SIMETHICONE 80 MG CHEW PO SCH ×2 (18:08→20:45)
[2021-04-18] MEDS: DOCUSATE SODIUM 100 MG CAP PO SCH (20:45)
[2021-04-18] MEDS: MoRPHine SULFATE 2 MG/ML CARP IV PRN (21:48)
[2021-04-18] MEDS ORDERED: LACTATED RINGER'S 500 ML IV PRN (21:56)
[2021-04-18] MEDS ORDERED: NALOXONE HCL 0.08 MG in SYRINGE 1.8 ML IV PRN (21:56)
[2021-04-18] MEDS ORDERED: MoRPHine SULFATE PF 1 MG/ML 10 ML AMP/VIAL EPI ONE (21:56)
[2021-04-18] MEDS ORDERED: DC INTRASPINAL MORPHINE SCH (22:00)
[2021-04-18] MEDS ORDERED: NO NARCOTICS OR SEDATIVES SCH (22:00)
[2021-04-18] MEDS ORDERED: SODIUM CHLORIDE 0.9% 1000ML 1,000 ML IV SCH (22:00)
[2021-04-19] MEDS: MoRPHine SULFATE 2 MG/ML CARP IV PRN ×2 (03:20→05:39)
[2021-04-19] MEDS ORDERED: CITRIC ACID/SODIUM CITRATE 15 ML UDC PO SCH (06:00)
[2021-04-19 06:27] LABS: Basophils # (auto) 0.01 K/uL (0-0.2); Basophils % (auto) 0.1 %; Eosinophils # (auto) 0.03 K/uL (0-0.5); Eosinophils % (auto) 0.3 %; Hematocrit (blood only) 31.8 % (37-47); Hemoglobin 10.5 g/dL (12.0-16.0); Immature Granulocytes # (auto) 0.03 K/uL (0.00-0.02); Immature Granulocytes % (auto) 0.3 %; Lymphocytes # (auto) 1.94 K/uL (1.2-3.4); Lymphocytes % (auto) 18.1 %; Mean Corpuscular Hemoglobin 28.5 pg (25-34); Mean Corpuscular Volume 86.4 fL (80-100); Mean Platelet Volume 11.9 fL (7.4-10.4); Monocytes # (auto) 0.65 K/uL (0.11-0.59); Monocytes % (auto) 6.1 %; Neutrophils # (auto) 8.05 K/uL (1.4-6.5); Neutrophils % (auto) 75.1 %; Platelet Count 201 K/uL (130-400); RDW Coefficient of Variation 13.8 % (11.5-14.5); RDW Standard Deviation 43.3 fL (36.4-46.3); Red Blood Count 3.68 M/uL (4.2-5.4); White Blood Count 10.71 K/uL (4.8-10.8)
[2021-04-19] MEDS: KETOROLAC 30 MG/ML VIAL IV PRN ×2 (06:48→12:11)
--- NOTE | 2021-04-19 07:34 | Obstetrical Progress Note ---
Date of Service April 19, 2021 Assessment & Plan (1) state: pod 1 ambulation, pain control. bp much better now that pain controlled Subjective Ambulation: limited ambulation Voiding: arriola catheter in place Passing Gas:: No Lochia:: Small Results & Data ([facility]) Vital Signs (Past 12 Hours) Vital Signs Temp Pulse Pulse Resp BP Pulse Ox 04/19/21 04:10 18 94 04/19/21 03:00 98.2 F 105 H 18 135/83 97 04/19/21 02:20 18 94 04/19/21 01:30 18 94 04/19/21 00:20 18 94 04/18/21 23:30 98.8 F 108 H 18 130/83 97 04/18/21 23:20 18 96 04/18/21 22:20 18 97 04/18/21 21:20 18 96 04/18/21 20:25 18 98 04/18/21 19:46 98.2 F 108 H 16 114/75 90
[2021-04-19] MEDS ORDERED: Nursing to Pharmacy Communication SCH (08:00)
[2021-04-19] MEDS: PRENATAL VITAMIN 1 TAB PO SCH (08:05)
[2021-04-19] MEDS: DOCUSATE SODIUM 100 MG CAP PO SCH ×2 (08:05→19:26)
[2021-04-19] MEDS: SIMETHICONE 80 MG CHEW PO SCH ×4 (08:05→19:26)
[2021-04-19] MEDS: oxyCODONE/ACETAMINOPHEN 5mg/325mg TAB PO PRN ×4 (10:17→23:28)
[2021-04-19] MEDS: IBUPROFEN 600 MG TAB PO PRN ×2 (19:27→23:27)
[2021-04-19] MEDS ORDERED: bisacodyL 5 MG TABEC PO SCH (20:00)
[2021-04-20] MEDS: IBUPROFEN 600 MG TAB PO PRN ×4 (05:52→21:41)
[2021-04-20] MEDS: oxyCODONE/ACETAMINOPHEN 5mg/325mg TAB PO PRN ×4 (05:53→21:41)
[2021-04-20 06:37] LABS: Hematocrit (blood only) 28.9 % (37-47); Hemoglobin 9.5 g/dL (12.0-16.0)
--- NOTE | 2021-04-20 07:53 | Obstetrical Progress Note ---
Date of Service April 20, 2021 Assessment & Plan (1) delivery delivered: Plan: 20yo POD 2 s/p LTCS at 39weeks 5 days. LTCS due to failure to progress. -Continue routine care -Vitals reviewed- afebrile -Encourage ambulation, regular diet -Pain control with ibuprofen, acetaminophen PRN -Encourage -new KARLENE to be placed today over incision site -Hgb 9.5, stable -f/u in 6 weeks with OB following discharge (2) Insulin controlled gestational diabetes mellitus (GDM) during : Admission and Anticipated Discharge Date Admission Date: April 17, 2021 Supervising Physician Co-Signing Physician Notes Resident Physician Supervision Note: I interviewed and examined the patient. Discussed with [Name of resident] and agree with findings and plan as documented in the note. Any exceptions or clarifications are listed here: [None] Documented By: Lillie Bettencourt MD, FACOG Subjective Ambulation: yes Voiding: yes Passing Gas: yes BM: not yet Diet Tolerance: regular w/o N/V Lochia: small Feeding Type: bottle Current Pain Level(1-10): 4 Review of Systems Review of Systems: Denies fevers/chills. Denies dyspnea, cough. Denies chest pain. Denies breast pain or discharge. +mild dysuria. Denies headache. Denies back pain. +mild left calf tenderness Physical Exam Physical Exam: General: Alert, oriented, no acute distress Cardiac: Regular rate and rhythm, normal S1, S2. No murmurs appreciated. Respiratory: Clear to auscultation b/l with good air flow entry, symmetric chest rise and fall. No wheezes or crackles. No increased work of breathing or accessory muscle use Abdomen: Soft, nontender, nondistended. Fundus firm and palpable at 1 cm below umbilicus. No guarding or rebound. KARLENE in place above incision site, removed and incision site healing well with no signs of infection, new KARLENE to be placed this morning Skin: No rashes or lesions Extremities: Warm, dry, well-perfused. No lower extremity edema, erythema or swelling. No calf tenderness. Negative Franky's bilaterally. Results & Data ([facility]) Vital Signs (Past 12 Hours) Vital Signs Temp Pulse Resp BP 04/19/21 23:30 36.8 C 99 H 18 126/83 Resident Activity Tracking Resident Involvement: Resident Care Provided Care Provided: OB Delivery
[2021-04-20] MEDS: PRENATAL VITAMIN 1 TAB PO SCH (08:26)
[2021-04-20] MEDS: DOCUSATE SODIUM 100 MG CAP PO SCH ×2 (08:26→21:41)
[2021-04-20] MEDS: SIMETHICONE 80 MG CHEW PO SCH ×4 (08:26→21:41)
[2021-04-20] MEDS ORDERED: bisacodyL 10 MG SUPP PR PRN (11:23)
[2021-04-20] MEDS ORDERED: SERTRALINE HCL 50 MG TABLET PO ONE (22:59)
--- NOTE | 2021-04-20 23:06 | Communication Note ---
Date of Service: April 20, 2021 Patient tearful in room, I was called to room to evaluate. She has had off and on tearful episodes. Expresses feelings about being unable to achieve vaginal delivery and needing instead. Worried about going home with baby. She has history of anxiety/depression, had taken prozac a few years ago and felt it didn't help. Was prescribed prozac at the beginning of the but never took this. No thoughts of self harm, harm to baby or others. She is feeling like she would like medication to help with these emotional swings - I wrote rx Zoloft to start tonight, and sent Rx to pharmacy. She will follow up within 1-2 weeks with PCP for further mental health care and further medication needs. She also has access to online counseling and thinking about doing this. Aware that if her symptoms worsen, and/or if she begins to feel thoughts of self harm or harm to others, she will need to go to the ER immediately.
[2021-04-21] MEDS: IBUPROFEN 600 MG TAB PO PRN ×3 (02:01→12:44)
[2021-04-21] MEDS: oxyCODONE/ACETAMINOPHEN 5mg/325mg TAB PO PRN ×3 (02:01→12:44)
--- NOTE | 2021-04-21 07:24 | Obstetrical Progress Note ---
Date of Service April 21, 2021 Assessment & Plan (1) delivery delivered: Plan: 20yo POD 3 s/p LTCS at 39 weeks 5 days. LTCS due to failure to progress. -Continue routine care -Vitals reviewed- afebrile -Encourage ambulation, regular diet -Pain control with ibuprofen, acetaminophen PRN -Encourage -KARLENE dressing in place -Hgb 9.5 (04/20), stable -f/u in 6 weeks with OB following discharge; dc likely today (2) Insulin controlled gestational diabetes mellitus (GDM) during : Admission and Anticipated Discharge Date Admission Date: April 17, 2021 Supervising Physician Co-Signing Physician Notes Resident Physician Supervision Note: I interviewed and examined the patient. Discussed with Dr. Rain and agree with findings and plan as documented in the note. Any exceptions or clarifications are listed here: POD#3 doing well. Started Zoloft last night, already doing better. Reviewed discharge instructions. Rx Percocet. Followup 6w. Documented By: Linda Cardona, Subjective Ambulation: yes Voiding: yes Passing Gas: yes BM: not yet Diet Tolerance: regular w/o N/V Lochia: small Feeding Type: bottle Current Pain Level(1-10): 3 Review of Systems Review of Systems: Denies fevers/chills. Denies dyspnea, cough. Denies chest pain. Denies breast pain or discharge. Denies dysuria. Denies headache. Denies back pain. Physical Exam Physical Exam: General: Alert, oriented, no acute distress Cardiac: Regular rate and rhythm, normal S1, S2. No murmurs appreciated. Respiratory: Clear to auscultation b/l with good air flow entry, symmetric chest rise and fall. No wheezes or crackles. No increased work of breathing or accessory muscle use Abdomen: Soft, nontender, nondistended. Fundus firm and palpable at 1 cm below umbilicus. No guarding or rebound. KARLENE dressing in place. Skin: No rashes or lesions Extremities: Warm, dry, well-perfused. No lower extremity edema, erythema or swelling. No calf tenderness. Negative Franky's bilaterally. Results & Data ([facility]) Vital Signs (Past 12 Hours) Vital Signs Temp Pulse Resp BP Pulse Ox 04/20/21 23:45 36.7 C 103 H 18 122/80 97 04/20/21 20:00 36.9 C 92 H 18 138/85 98 Resident Activity Tracking Resident Involvement: Resident Care Provided Care Provided: OB Delivery
[2021-04-21] MEDS: SIMETHICONE 80 MG CHEW PO SCH ×2 (08:51→12:44)
[2021-04-21] MEDS: DOCUSATE SODIUM 100 MG CAP PO SCH (08:51)
[2021-04-21] MEDS: PRENATAL VITAMIN 1 TAB PO SCH (08:51)
--- NOTE | 2021-04-23 07:59 | Discharge Summary ---
Date of Service April 23, 2021 Admission HPI Per Admitting Provider Fabiana Lopez is a G1 at 39 weeks here for an induction of labor. Her is complicated by GDM on insulin, BMI > 35 at the start of , and GBS carrier status. She has a history of anxiety, and psychogenic nonepileptic seizure. She was previously on Fluoxetine and Buspirone for anxiety and stopped these during . She said her last seizure activity was in May. She is a GBS carrier. She does have an allergy to Penicillin with the reaction of rash when she was younger. She denies any contractions, leaking fluid, vaginal bleeding. Pt. states the baby has good movement. She would like to have an epidural. Discharge Data Consultations 04/17/21 17:28 Consult Anesthesiology Stat Procedures Performed Operation Date: 04/18/21 10:00 Actual Procedures p Section in LD; Primary lower uterine transverse section for the of a live girl at 1051 - Lillie Bettencourt MD, [facility] Course (1) delivery delivered: 20yo POD 3 s/p LTCS at 39 weeks 5 days. LTCS due to failure to progress. -Continue routine care -Vitals reviewed- afebrile -Encourage ambulation, regular diet -Pain control with ibuprofen, acetaminophen PRN -Encourage -KARLENE dressing in place -Hgb 9.5 (04/20), stable -f/u in 6 weeks with OB following discharge; dc likely today Coding Level of Care Code None Diagnoses delivery delivered O82
== END 2021-04-21 16:15 | disposition home or self-care (01) | DRG 788 ==
LOC: 4S1 17:02 → 4S2 04-18 16:22